=== PATIENT | female | born 1945 | race Caucasian/White ===

== ENCOUNTER 2017-06-07 09:59 | Observation (INO) | payer OTHER ==
[~2017-06-07] VITALS: Ht 162.6 cm; Wt 77.6 kg
--- NOTE | ~2017-06-07 | D ---
[facility] [place] [address] DISCHARGE SUMMARY Name: JOSSUE BRADFORD SEPTEMBER Room #: 218-P [facility] Amaris Rees#: [id number] Admission: 06/07/17 Attend Phys: Yannick Mitchell MD Discharge: 06/08/17 Date of : 43 Report #: [id number] THIS REPORT FOR: //name// CC: Yannick Acosta Shira Bianca DATE OF SERVICE: 06/08/2017 DISCHARGE DIAGNOSES: 1. Sick sinus syndrome. 2. Symptomatic bradycardia. 3. Syncope. 4. Dementia. HISTORY OF PRESENT ILLNESS: The patient is a 71-year-old with a history of a syncopal episode in the setting of marked sinus bradycardia. She has worn quality assurance monitor body showing that her heart rates are in the 30s to 40s and she has symptomatic lightheadedness with this. As such, she was deemed a candidate for dual chamber pacemaker implantation. This was performed on 06/07/2017. She underwent a Biotronik dual chamber pacemaker that is MRI compatible given her neurologic issues and need for future MRI scans. The procedure was without complications. HOSPITAL COURSE: She was monitored overnight. She did well without any issues. On telemetry, she was atrially paced. Chest x-ray the following day showed stable lead position and no pneumothorax, which I visualized. Her device interrogation showed normal device function. She was atrially pacing 100% and ventricular pacing 4%. PHYSICAL EXAMINATION: GENERAL: On the day of discharge, she was doing well without chest pain or shortness of breath. HEART: Regular rate and rhythm with no murmurs, rubs or gallops. LUNGS: Clear to auscultation bilaterally. ABDOMEN: Soft, nontender. EXTREMITIES: No edema. SKIN: Her incision was healing nicely with some mild bruising, but no hematoma. As such, she was deemed stable for discharge home and she will be discharged on her same home medications with instructions to follow up with me in 7-10 days. <ELECTRONICALLY SIGNED> By: Yannick Mitchell MD 06/21/17 1750 [id number] Yannick Mitchell MD /nt
--- NOTE | ~2017-06-07 | P ---
[facility] [place] [address] PROCEDURE REPORT Name: JOSSUE BRADFORD SEPTEMBER Room #: 218-P [facility] Amaris MTom#: [id number] Admission: 06/07/17 Attend Phys: Yannick Mitchell MD Discharge: 06/08/17 Date of : 43 Report #: [id number] THIS REPORT FOR: //name// CC: Yannick Baronie Bianca DATE OF SERVICE: 06/07/2017 PROCEDURES PERFORMED: Dual chamber pacemaker insertion. PREOPERATIVE DIAGNOSES: 1. Sick sinus syndrome. 2. Symptomatic bradycardia. POSTOPERATIVE DIAGNOSES: 1. Sick sinus syndrome. 2. Symptomatic bradycardia. HISTORY: The patient is a 71-year-old with a history of symptomatic bradycardia, sick sinus syndrome and syncopal episodes who is here for a dual chamber pacemaker insertion. Given her history of Parkinson's disease and need for MRI, she is undergoing an MRI compatible device. ANESTHESIA: The patient underwent MAC anesthesia with no anesthesia related complications. DESCRIPTION OF PROCEDURE: The patient underwent informed consent. We discussed the details of the procedure including the risks, which include but are not limited to bleeding, infection, vascular damage, cardiac perforation, pneumothorax. She understood these risks and is willing to proceed. As such, she was brought to the EP laboratory in a fasting and sedated state, prepped and draped in sterile fashion and she received IV antibiotics and underwent a venogram showing patency of left axillary vein. Next, I injected lidocaine below the level of clavicle. Incision was made, the pocket was created over the prepectoral fascia, access was obtained twice to the left axillary vein with the sheaths positioned using the modified Seldinger technique. Leads were positioned in the right ventricular apex and right atrial appendage both with adequate pacing and sensing thresholds. The leads were sutured to the prepectoral fascia and the device was connected and found to be functioning normally. The pocket was irrigated with vancomycin and then closed in 3 layers using 2-0 for the deep layer, 3-0 for the mid layer and 4-0 for the subcuticular layer. Surgical glue was placed to the outer skin layer. The patient awoke neurologically hemodynamically intact. No complications and no significant bleeding. [facility] [address] [place] [address] PROCEDURE REPORT Name: JOSSUE BRADFORD SEPTEMBER Room #: 218-P [facility] Amaris MKrista.#: [id number] Admission: 06/07/17 Attend Phys: Yannick Mitchell MD Discharge: 06/08/17 Date of : 43 Report #: [id number] The implanted pacemaker was a Biotronik model #193897, serial #[id number]. The atrial lead was a Biotronik model #217187, serial #[id number] with the P-wave of 2.2 millivolts, pacing impedance of force 54 ohms and pacing threshold 0.8 volts at 0.4 milliseconds. The RV lead was a Biotronik model #125479. The serial number was [id number] with a R-wave of 11 millivolts, pacing impedance of 578 ohms and the pacing threshold 0.6 volts at 0.4 milliseconds. The device was programmed to the DDDR 60-130 mode. CONCLUSIONS: 1. Successful dual-chamber pacemaker implantation. 2. Satisfactory atrial and right ventricular pacing and sensing thresholds. <ELECTRONICALLY SIGNED> By: Yannick Mitchell MD 06/21/17 175 [id number] 20 Yannick Mitchell MD /nt
[2017-06-07 10:40] LABS: ABSOLUTE NEUTROPHILS 1.9 thou/uL (1.4-8.2); BASOPHILS 0.9 % (0.0-2.0); EOSINOPHILS 2.9 % (0.0-3.0); HEMATOCRIT 39.8 % (37.0-47.0); HEMOGLOBIN 13.6 gm/dL (12.0-15.0); LYMPHOCYTES 35.7 % (24.0-44.0); MCH 32.7 pg (26.0-34.0); MCHC 34.1 g/dL (28.0-37.0); MONOCYTES 11.6 % (1.0-8.0); PLATELET COUNT 157 thou/uL (150-400); POLYS 48.9 % (36.0-66.0); RBC 4.15 mil/uL (4.20-5.00); RDW 12.8 % (10.5-14.5); WBC 3.9 thou/uL (4.0-11.0)
[2017-06-07 10:46] VITALS: BP 197/59
[2017-06-07 10:52] LABS: CREATININE 0.9 mg/dL (0.6-1.0); POTASSIUM 4.3 mmol/L (3.5-5.1)
[2017-06-07 10:54] LABS: APTT 26.1 Seconds (24.5-32.8); PROTIME 10.5 Seconds (9.3-11.4)
[2017-06-07 10:56] LABS: ALBUMIN 3.3 g/dL (3.4-5.0); TOTAL BILIRUBIN 0.6 mg/dL (<0.1-1.0); TOTAL PROTEIN 6.8 g/dL (6.4-8.2)
[2017-06-07] MEDS ORDERED: ASPIR 8181 MG PO (10:57)
[2017-06-07] MEDS ORDERED: ARICEPT 5 MG TAB5 MG PO (10:58)
[2017-06-07] MEDS ORDERED: NAMENDA 10 MG T10 MG PO (10:58)
[2017-06-07] MEDS ORDERED: CELEXA20 MG PO (10:58)
[2017-06-07] MEDS ORDERED: COZAAR100 MG PO (10:59)
[2017-06-07 14:45] VITALS: BP 192/91
[2017-06-07 15:30] VITALS: BP 183/81
[2017-06-07 19:22] VITALS: BP 169/81
[2017-06-08 04:10] VITALS: BP 145/81
[2017-06-08 08:20] VITALS: BP 184/83; BP 186/83
[2017-06-08 10:51] VITALS: BP 184/83
== END 2017-06-08 11:45 | disposition home or self-care (01) ==
LOC: CATH 09:59 → 2N 15:04
PROVIDERS: Internal Medicine Cardiovascular Disease
DX: I49.5 Sick sinus syndrome (principal); I10 Essential (primary) hypertension; R55 Syncope and collapse; G20 Parkinson's disease; F02.80 Dementia in other diseases classified elsewhere, unspecified severity, without behavioral disturbance, psychotic disturbance, mood disturbance, and anxiety; Z82.49 Family history of ischemic heart disease and other diseases of the circulatory system
CPT/HCPCS: 62110; 62900; 70005

== ENCOUNTER 2020-08-20 12:58 | Emergency (ER) | payer OTHER ==
[~2020-08-20] VITALS: Ht 162.6 cm; Wt 90.7 kg
[~2020-08-20 12:58] MED LIST: ARICEPT 5 MG TAB5 MG PO; ASPIR 8181 MG PO; CELEXA20 MG PO; COZAAR100 MG PO; NAMENDA 10 MG T10 MG PO
[2020-08-20 13:36] LABS: ABSOLUTE NEUTROPHILS 1.8 thou/uL (1.4-8.2); BASOPHILS 0.6 % (0.0-2.0); EOSINOPHILS 2.7 % (0.0-3.0); HEMATOCRIT 39.7 % (37.0-47.0); HEMOGLOBIN 13.5 gm/dL (12.0-15.0); LYMPHOCYTES 38.8 % (24.0-44.0); MCH 33.5 pg (26.0-34.0); MCHC 33.9 g/dL (28.0-37.0); MCV 98.9 fL (80.0-100.0); MONOCYTES 11.6 % (1.0-8.0); PLATELET COUNT 135 thou/uL (150-400); POLYS 46.3 % (36.0-66.0); RBC 4.02 mil/uL (4.20-5.00); RDW 12.9 % (10.5-14.5); WBC 3.9 thou/uL (4.0-11.0)
[2020-08-20 13:41] LABS: URINE BILIRUBIN NEGATIVE (Negative); URINE BLOOD 1+ (Negative); URINE CLARITY CLEAR; URINE COLOR YELLOW; URINE GLUCOSE-RANDOM* NEGATIVE (Negative); URINE KETONES NEGATIVE (Negative); URINE NITRITE-REFLEX NEGATIVE (Negative); URINE PROTEIN (DIPSTICK) NEGATIVE (Negative); URINE SPECIFIC GRAVITY 1.015 (1.005-1.035); URINE UROBILINOGEN 0.2 E.U./dl (0.2-1.0)
[2020-08-20 13:42] LABS: ANION GAP 9 mmol/L (7-16); BUN 13 mg/dL (7-18); CALCIUM 8.4 mg/dL (8.5-10.1); CHLORIDE 106 mmol/L (98-107); CO2 26 mmol/L (21-32); GLUCOSE 95 mg/dL (74-106); POTASSIUM 3.7 mmol/L (3.5-5.1); SODIUM 141 mmol/L (136-145)
[2020-08-20 13:43] LABS: URINE LEUKOCYTES-REFLEX 3+ (Negative)
[2020-08-20 13:50] LABS: SQUAMOUS >10 Many /LPF (0-3)
[2020-08-20 13:51] LABS: MUCUS 0-3 Light strn/LPF (None Seen)
[2020-08-20 13:52] LABS: CASTS None Seen /LPF (None Seen); CRYSTALS None Seen /LPF (None Seen); URINE RBC 1-2 Rare /HPF (NONE SEEN)
[2020-08-20 13:52] LABS: ALBUMIN 2.9 g/dL (3.4-5.0); SGOT 29 U/L (15-37); SGPT 31 U/L (30-65); TOTAL BILIRUBIN 0.7 mg/dL (0.2-1.0); TOTAL PROTEIN 6.3 g/dL (6.4-8.2); TROPONIN-I <0.06 ng/mL (<0.06)
[2020-08-20 14:36] VITALS: BP 157/85
--- NOTE | 2020-08-22 08:35 | EKG ---
[place] [address] [facility] [employer] [place] [address] ELECTROCARDIOGRAM REPORT Name: JOSSUE BRADFORD [id number] Admission: 08/20/20 Attend Phys: Discharge: 08/20/20 Date of : 43 Report #: [id number] [facility] ED Test Date: 2020-08-20 Test Time: 13:13:27 Pat Name: JOSSUE BRADFORD Department: Room: Gender: F Real Estate Sales Manager: JCHAILUC : 1945 Requested By: Keila Hernandez Order Number: [id number] MD: Javon Donald Measurements Intervals [place] Rate: 75 P: [place]: 184 QRS: 29 QRSD: 98 T: 79 QT: 482 QTc: 539 Interpretive Statements Atrial-paced complexes, sinus rhythm Borderline repolarization abnormality Prolonged QT interval No previous ECG available for comparison Electronically Signed On 08-22-2020 8:35:15 CDT by Javon Donald [email or web address] <ELECTRONICALLY SIGNED> By: Javon Donald MD, [facility] 08/22/20 0835 1313 1313 Javon Donald MD, FACC /EPI
== END 2020-08-20 15:23 | disposition home or self-care (01) ==
LOC: ER 12:58
PROVIDERS: Nurse Practitioner Family
DX: I10 Essential (primary) hypertension (principal); N39.0 Urinary tract infection, site not specified; F03.90 Unspecified dementia, unspecified severity, without behavioral disturbance, psychotic disturbance, mood disturbance, and anxiety; I48.91 Unspecified atrial fibrillation; Z90.711 Acquired absence of uterus with remaining cervical stump; Z79.82 Long term (current) use of aspirin; Z79.899 Other long term (current) drug therapy; Z88.2 Allergy status to sulfonamides